=== PATIENT | male | born 1995 | race Caucasian/White ===

== ENCOUNTER 2016-07-17 22:47 | Emergency (ER) | payer SELFPAY ==
[2016-07-17] MEDS ORDERED: ZOFRAN ODT4 MG PO (23:00)
[2016-07-17] MEDS ORDERED: CHERATUSSIN AC120 ML PO (23:00)
== END 2016-07-17 23:07 | disposition home or self-care (01) ==
LOC: ED 22:47
DX: B34.9 Viral infection, unspecified (principal)

== ENCOUNTER 2020-03-12 06:56 | Emergency (ER) | payer SELFPAY ==
[~2020-03-12 06:56] MED LIST: CHERATUSSIN AC120 ML PO; ZOFRAN ODT4 MG PO
[2020-03-12] MEDS ORDERED: CYCLOBENZAPRINE10 M1 PO (08:31)
[2020-03-12 08:41] VITALS: BP 127/85
== END 2020-03-12 08:40 | disposition home or self-care (01) ==
LOC: ED 06:56
DX: M54.5 Low back pain (principal); F17.200 Nicotine dependence, unspecified, uncomplicated; Z90.89 Acquired absence of other organs; X50.1XXA Overexertion from prolonged static or awkward postures, initial encounter; Y93.F2 Activity, caregiving, lifting
CPT/HCPCS: J1885; J2360